=== PATIENT | female | born 1960 | race Two or more races ===

== ENCOUNTER 2025-02-20 12:12 | Emergency (ER) | payer MEDICAID, SELFPAY ==
--- NOTE | ~2025-02-20 | XR_ITS ---
EXAMINATION: XR KNEE, LEFT CLINICAL INFORMATION: heard knee pop on standing COMPARISON: None available. TECHNIQUE: Four views of the left knee. FINDINGS: No fracture, dislocation, or suspicious bone lesion. There is anatomical alignment. There is preservation of the joint spaces. There is patella baja. No significant joint effusion evident on the lateral projection. No soft tissue abnormalities. XR/XR knee LT 4V IMPRESSION: 1. No acute bony abnormalities. 2. Patella baja. Correlate for intact extensor mechanism. Electronically signed by: Corey Juarez MD 02/20/2025 01:14 PM EDT
[2025-02-20 12:31] VITALS: BP 148/88; PULSE 110; RESP 18; TEMP 36.2; O2SAT 98; BMI 24.7
--- NOTE | 2025-02-20 12:31 | ED_ITS ---
HPI - Extremity Injury (Lower) General Chief Complaint: Extremity Injury, Lower Stated Complaint: L Knee Dislocation Time Seen by Provider: 02/20/25 13:34 Source: patient Mode of arrival: ambulatory Limitations: no limitations History of Present Illness ED Provider: CORNELIO QUIROZ Narrative: 65 yo female with PMH of R ACL surgery - she notes she was kneeling today on both knees got up and it felt very painful and tight on the medial aspect of the L knee. She denies numbness or weakness. It hurts to fully extend and move the knee/walk on it. 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) Injury: Right: knee Type of Injury: blunt Place: home Severity: moderate Relieving factors: immobilization Exacerbating factors: weight bearing and movement Context: other Associated symptoms: other (pain on medial aspect of the knee) Other symptoms: none Treatments prior to arrival: bandage Related Data Allergies Allergy/AdvReac Type Severity Reaction Status Date / Time bacitracin Allergy Unknown WELTS Verified 02/20/25 12:33 [From NEOSPORIN ([id number])] neomycin Allergy Unknown WELTS Verified 02/20/25 12:33 [From NEOSPORIN ([id number])] polymyxin B Allergy Unknown WELTS Verified 02/20/25 12:33 [From NEOSPORIN ([id number])] Review of Systems Review of Systems: Constitutional : No Fever, No Chills ENT/Mouth : No Ear Pain, No Hoarseness, No sore throat Eyes: No Eye Pain, No Swelling, No Redness, No Foreign Body Cardiovascular : No Chest Pain, No SOB Respiratory : No Cough, No Dyspnea Gastrointestinal : No Nausea, No Vomiting, No Diarrhea, No abdominal Pain Genitourinary : No Dysuria, No Hematuria Musculoskeletal : positive joint pain, No Myalgias, No Joint Swelling Skin : No Skin lacerations, No rash Neuro : No Weakness, No Numbness, No Loss of Consciousness, No Dizziness, No Headache All other systems reviewed and are negative [facility] Past Medical History Attestation statement: The following information was validated with the patient. Source: old records reviewed Medical History (Updated 02/20/25 @ 14:06 by Crystal Grimes DO) ACL tear Social History Social History (Updated 02/20/25 @ 14:06 by Crystal Cornelio, DO) Patient Tobacco Use Status: Never used Tobacco Physical Exam Vital Signs: Vital Signs: Last Vital Signs Temp 97.1 F 02/20/25 12:31 Pulse 110 H 02/20/25 12:31 Resp 18 02/20/25 12:31 BP 148/88 H 02/20/25 12:31 Pulse Ox 98 02/20/25 12:31 O2 Del Method Room Air 02/20/25 12:31 BMI result Body Mass Index 24.7 Appearance: Alert. Oriented X3. No acute distress. Eyes: Pupils equal, round and reactive to light. ENT: Pharynx normal. Neck: Normal inspection. Neck supple. CVS: Normal heart rate and rhythm. Pulses normal. Respiratory: No respiratory distress. Breath sounds normal. Abdomen: Soft and nontender. Skin: Skin warm and dry. Normal skin color. Normal skin turgor. Extremities: No lower extremity edema. L knee distal NV intact, on testing able to raise the leg and no pain over quad tendon I do not feel a divot, she can plantar and dorsiflex the toes, no swelling other than mild medial joint line effusion + apley maneuver Neuro: Oriented X 3. No motor deficit. No sensory deficit. CN2-12 intact Course Course Course Narrative: 02/20/25 1231 APOLONIA Weaver This is a Rapid Medical Examination (RME) performed by Miladys Alvarez PA-C in triage. Full HPI, ROS, assessment and treatment plan per primary provider in the Main ED. Hx: 65 yo F here for eval of L knee pain since 1000 this morning. reports kneeling down and leaning forward to reach something in the attic, reports feeling like her knee popped out when she went to stand up. hx of similar a few months ago. reports concern she dislocated the knee. pain w/ bearing weight, better w/ rest. no numbness/tingling/weakness of the LLE. PE/vitals: wearing knee brace, unable to bear weight on LLE. strong dp pulse. Plan: xrs Medical Decision Making Medical Decision Making [facility] Narrative: 65 yo female with PMH of R ACL tear at this time the patient c/o L knee pain along medial proximal tib area she is NV intact, based off testing her quad and patella tendon appear intact at this time xray ordered, crutches. Told to get MRI with PCP Differential Diagnosis Differential Diagnoses: The differential diagnosis associated with the presentation includes strain, sprain, internal derangement injury Independent Interpretation I performed an independent interpretation of an: Plain X-Ray (no fracture) Radiology Impression Discussion of test interpretation with radiology: I have reviewed the radiologist's reading. External Record Review External record reviewed: Outpatient record Prescription Management I considered prescription management with: Pain Medication Discharge Plan Discharge Clinical Impression: Knee strain Patient Disposition: Home, Self-Care Instructions: Knee Sprain (ED), Crutch Instructions (ED) Additional Instructions: xray shows patella baja at this time no acute fracture or dislocation would follow up next week with your doctor return for any worsening symptoms or concerns you need MRI of your knee use crutches for 5 days, rest, ice and elevated high riding patella on exam Discharge Date/Time: 02/20/25 13:51 Print Language: Azeri
--- NOTE | 2025-02-20 13:51 | PC.NURSE ---
pt was seen and discharged by provider. she was fitted with axillary crutches and demonstrated proper use
== END 2025-02-20 13:51 | disposition home or self-care (01) ==
LOC: HO.ED 13:48
PROVIDERS: Emergency Provider Emergency Medicine
DX: S86.912A Strain of unspecified muscle(s) and tendon(s) at lower leg level, left leg, initial encounter (principal); M25.562 Pain in left knee; X58.XXXA Exposure to other specified factors, initial encounter; Y93.9 Activity, unspecified; Y92.9 Unspecified place or not applicable; Y99.8 Other external cause status
CPT/HCPCS: 73564; 99281; 99283

== ENCOUNTER → 2025-02-20 12:33 | Outpatient (BNV) | payer MEDICAID, SELFPAY | PROVIDERS: Emergency Provider Emergency Medicine; Visit Provider Radiology Diagnostic Radiology | DX: M22.3X2 Other derangements of patella, left knee (principal) | CPT/HCPCS: 73564 ==

== ENCOUNTER 2025-05-15 09:33 | Outpatient (REF) | payer MEDICAID, SELFPAY ==
--- NOTE | ~2025-05-15 | XR_ITS ---
EXAMINATION: XR KNEE, LEFT CLINICAL INFORMATION: M25.569 - Pain in unspecified knee COMPARISON: None available. TECHNIQUE: AP standing bilateral and sunrise views of the left knee. FINDINGS: There is moderate narrowing of the medial joint space and the lateral patellofemoral joint. Minute marginal osteophytes are present in the 3 joint compartments. There is lateral patellar tilt. XR/XR knee LT 2V IMPRESSION: Moderate osteoarthritis. Lateral patellar tilt is associated with patella femoral maltracking and/or excess lateral pressure syndrome. Electronically signed by: Dank Arboleda MD 05/15/2025 09:59 AM EDT
--- OUTSIDE RECORDS SUMMARY | 2025-05-19 10:38 | XMS_ITS | Clinical Summary ---
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 Role Phone Pcp, Unknown Primary Care [...] Description 04/01/2025 10:45 AM EDT Office Visit [facility] & [facility] Medicine [address] [place] [id number] Mere Mead MD Sprain of left knee, unspecified ligament, initial encounter (Primary Dx) 03/11/2025 Ancillary Orders [facility],Outside Imaging [address] [place] [address] Pedro, Pedro, 02/20/2025 - 02/20/2025 11:59 PM EDT Hospital Encounter [facility]Outside [facility] [address] [place] [address] Unknown, Unknown, Discharge Disposition: Home or Self [...] Description 08/27/2025 1:00 PM EST Office Visit [facility] [place] [facility] [address] [facility] [address] [place] [address] Leah Armijo MD [address] [facility] [address] [place] [address] [email or web address] Health Maintenance Due Date Last Done Comments [...] 3 Months Insurance [place] [id number] [facility] Care Teams Fish Farm Manager Relationship Specialty Start Date End Date Pcp, Unknown PCP - General 03/04/25 Additional Source Comments The information contained in this document represents components of the legal health record. It is not the complete legal health record.[facility]
== END 2025-05-15 09:34 | disposition home or self-care (01) ==
LOC: HO.HOSX 09:33
PROVIDERS: Visit Provider Physician Assistant
DX: M23.92 Unspecified internal derangement of left knee (principal); M25.569 Pain in unspecified knee
CPT/HCPCS: 73560; 99202

== ENCOUNTER 2025-05-15 09:47 | Outpatient (AMB) | payer MEDICAID, SELFPAY ==
--- NOTE | 2025-05-15 09:55 | A.OFFVIS_ITS ---
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 Patient states she was kneeling on both knees got up and felt a lot of pain. It also felt tight on the medial aspect of the knee. She was given crutches but is not using them at this time. Patient states she is able to walk but still feels discomfort and is preventing her from doing task as she would like. IMPRESSION: 1. No acute bony abnormalities. 2. Patella baja. Correlate for intact extensor mechanism. 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 Shanks is a 65-year-old female who presents to the office today for evaluation of left knee injury that she sustained on 02/20/2025. She states that she was kneeling on both knees in her attic and leaning over to grab something. She went to get up and felt a lot of pain. She was unable to fully weightbear. She was seen in the emergency department where x-rays were obtained and negative for any acute fracture or dislocations. She was discharged and instructed to follow up with orthopedics outpatient for further evaluation and treatment. 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 Additionally, she had a right knee ACL reconstruction many years ago. [facility] Medical History (Updated 05/15/25 @ 10:24 by Sherice Nicolas PA-C) ACL tear Social History (Updated 02/20/25 @ 14:06 by Crystal Grimes DO) Patient Tobacco Use Status: Never used Tobacco Review of Systems Const All systems reviewed & are unremarkable except as noted in HPI and below Physical Exam Const General: cooperative, healthy appearing and no acute distress Resp Effort & Inspection: normal respiratory effort and able to speak in complete sentences Extrem Other: Left knee: Normal to inspection. No ecchymosis, erythema, or joint effusion. Slight tenderness to palpation of the medial joint line. Full knee extension and flexion with slight crepitus. Negative Eva's. Negative anterior drawer. NVI. Psych Appearance: grossly normal Mental Status: mental status grossly normal Attitude: cooperative Assessment & Plan Assessment & Plan (1) Internal derangement of left knee: Code(s): M23.92 - Unspecified internal derangement of left knee Category: Medical Plan Ms. Shanks is a 65-year-old female who presents to the office today for evaluation of left knee injury that she sustained on 02/20/2025. She states that she was kneeling on both knees in her attic and leaning over to grab something. She went to get up and felt a lot of pain. She was unable to fully weightbear. She was seen in the emergency department where x-rays were obtained and negative for any acute fracture or dislocations. She was discharged and instructed to follow up with orthopedics outpatient for further evaluation and treatment. 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 Additionally, she had a right knee ACL reconstruction many years ago. Additionally, the patient reports episodes of locking in which she has to flex instruct her knee to end range to release and allow for motion. While the office today, I have placed an order for an MRI to further evaluate the integrity of the left knee and surrounding structures. Additionally, I placed an order for physical therapy to work on range of motion and strengthening of the left knee. She will follow up after the MRIs obtained, sooner if needed. X-rays of the left knee which were obtained while in the office today and were reviewed by me, Sherice Nicolas PA-C, revealed mild arthritic changes. Orders: Orders PT Evaluation and Treatment Today M23.92 - Unspecified internal derangement of left knee MR knee LT wo con Today M23.92 - Unspecified internal derangement of left knee XR knee LT 2V Today M25.569 - Pain in unspecified knee Coding Level of Care Code New Pt Level 3 (16601) Diagnoses Internal derangement of left knee M23.92
--- OUTSIDE RECORDS SUMMARY | 2025-05-15 10:34 | XMS_ITS | Clinical Summary ---
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 Name Role Phone Pcp, Unknown Primary Care Provider Unavailabl e Allergies Active Allergy Reactions Criticality Noted Date Comments Erythromycin Base 01/25/2010 Nausea ,upset stomach Neosporin (Neomycin-Polymyx) Dermatitis 993 Colloidal Oatmeal 06/12/2024 Medications Hospital, Clinic, or Other Facility Administered Medication Ordered Dose Route Frequency Start Date End Date Status lidocaine (XYLOCAINE) 1% injection 2 mL 2 mL See Adm Inst Once 04/01/2025 06/30/2025 Active BUPivacaine HCl (MARCAINE) 0.25% injection 2 mL 2 mL See Adm Inst Once 04/01/2025 06/30/2025 Active triamcinolone acetonide (KENALOG-40) 40 mg/mL injection 80 mg 80 mg See Adm Inst Once 04/01/2025 06/30/2025 Active Active Problems No known active problems Encounters Date Type Department Care Team Description 04/01/2025 10:45 AM EDT Office Visit [facility] [address] [place] [id number] Mere Mead MD Sprain of left knee, unspecified ligament, initial encounter (Primary Dx) 03/11/2025 Ancillary Orders [facility]Outside Imaging [address] [place] [address] Pedro, Pedro, 02/20/2025 - 02/20/2025 11:59 PM EDT Hospital Encounter [facility] [address] [place] [address] Unknown, Unknown, Discharge Disposition: Home or Self Care from Last 3 Months Immunizations Immunization Administration Dates Next Due Tdap 07/27/2024 Social History Tobacco Use Types Packs/Day Years Used Date Smoking Tobacco: Never Smokeless Tobacco: Never Alcohol Use Standard Drinks/Week Comments Not Currently 0 (1 standard drink = 0.6 oz pur e alcohol) Education Answer Date Recorded Are you interested in more education? Not on angelika e 05/03/2024 Are you concerned about learning? Not on file 05/03/2024 No 05/03/2024 No 05/03/2024 Digital Access Answer Date Recorded No 05/03/2024 No 05/03/2024 Reliable internet access at home? Not on file 05/03/2024 Device with a working camera? Not on file Intimate Partner Violence Answer Date R ecorded Are you denied basic needs s uch as food, clothing, or medical care? No 07/27/2024 In the past 12 months have y ou been in a relationship with a person who hurts, threatens, or tries to control you? No 07/27/2024 Are you denied basic needs s uch as food, clothing, or medical care? No 07/27/2024 In the past 12 months have y ou been in a relationship with a person who hurts, threatens, or tries to control you? No 07/27/2024 Comments Unknown Sex and Gender Information Value Date Recorded Sex Assigned at Female 07/27/2024 8:27 PM EST Legal Sex Female 7:48 PM EST Gender Identity Female 07/27/2024 8:27 PM EST Sexual Orientation Don't know 07/27/2024 9: 32 PM EST Last Filed Vital Signs Vital Sign Reading Time Taken Comments Blood Pressure 125/87 08/10/2024 11:28 AM EST Pulse 99 08/10/2024 11:28 AM EST Temperature 36.1 C (97 F) 08/10/2024 11:28 AM EST Respiratory Rate 20 08/10/2024 11:28 AM EST Oxygen Saturation 97% 08/10/2024 11:28 AM EST Inhaled Oxygen Concentration - - Weight 65.8 kg (145 lb) 08/10/2024 11:28 AM EST Height 167.6 cm (5' 6 ) 08/10/2024 11:28 AM EST Body Mass Index 23.4 08/10/2024 11:28 AM EST Plan of Treatment Upcoming Encounters Date Type Department Care Team (Late st Contact Info) Description 08/27/2025 1:00 PM EST Office Visit [facility] [address] [place] [address] Leah Armijo MD [address] [facility] [address] [place] [address] [email or web address] Health Maintenance Due Date Last Done Comments LIPID PANEL 1961 DEPRESSION SCREENING 1973 HEPATITIS C SCREENING 1979 HIV ONE-TIME SCREENING (18-65 YEARS) 1979 PAP SMEAR 1982 MAMMOGRAM 2001 COLOGUARD 2006 COLONOSCOPY 2006 COLORECTAL CANCER SCREENING 2006 FIT TEST 2006 FOBT 2006 SIGMOIDOSCOPY 2006 VIRTUAL COLONOSCOPY 2006 INFLUENZA VACCINE (#1) 2025 , 09/18/2022, 09/22/2021, Additional history exists Adult Td,Tdap Booster 07/27/2034 07/27/2024, 017 COVID-19 VACCINE Completed 09/03/2024, 10/2022, 01/02/2022, Additional history exists PNEUMOCOCCAL VACCINES (50+ years) Completed 12/18/2024 RSV VACCINE Completed 02/26/2025 ZOSTER VACCINES Completed 02/26/2025, 12/18/2024 SMOKING STATUS SCREENING (Once After 26 Yrs) Completed 04/01/2025 HEPATITIS A VACCINES Aged Out No long er eligible based on patient's age to complete this topic HIB VACCINES Aged Out No longer eligi ble based on patient's age to complete this topic MENINGOCOCCAL VACCINES (ACWY) Aged Out No longer eligible based on patient's age to complete this topic MENINGOCOCCAL VACCINES (B) Aged Out N o longer eligible based on patient's age to complete this topic Medical Devices Not on file Procedures Procedure Name Priority Date/Time Associated Diagnosis Comments XR LOWER EXTREMITY OUTSIDE (NO INTERPRETATION) Routine 02/20/2025 12:00 AM EDT from Last 3 Months Results * XR Lower Extremity Outside (No Interpretation) (02/20/2025 12:00 AM EDT) Narrative SYSTEMGENERATED, DOCUMENTATION - 03/11/2025 8:15 AM EDT This study is for PACS storage only and not for interpretation. us Unknown Unknown MD [facility] OUTSIDE IMAGING W/OUT INT ERPRETATION Final Result from Last 3 Months Insurance [place] [id number] [facility] Care Teams Electrical Prospecting Engineer Relationship Specialty Start Date End Date Pcp, Unknown PCP - General 03/04/25 Additional Source Comments The information contained in this document represents components of the legal health record. It is not the complete legal health record.[facility]
== END 2025-05-15 10:26 | disposition home or self-care (01) ==
LOC: HO.HOS 09:48
PROVIDERS: Visit Provider Physician Assistant
DX: M23.92 Unspecified internal derangement of left knee (principal)
CPT/HCPCS: 99203

== ENCOUNTER → 2025-05-15 09:48 | Outpatient (BNV) | payer MEDICAID, SELFPAY | PROVIDERS: Visit Provider Radiology Diagnostic Radiology | DX: M17.12 Unilateral primary osteoarthritis, left knee (principal) | CPT/HCPCS: 73560 ==

== ENCOUNTER 2025-07-24 10:59 | Outpatient (RCR) | payer MEDICAID, SELFPAY ==
--- NOTE | 2025-06-08 11:50 | MHC.PT.EP ---
[facility] Office [place] Office [place] Office [address] Magaly Greenberg [address] [phone] F: [phone] F: [phone] F: [phone] F: [phone] Physical Therapy Plan of Care Date of Evaluation: 06/08/25 Date of Surgery: NA Diagnosis: Internal derangement of L knee Assessment: Amanda is a 65 year old female who is referred to PT for internal derangement of L knee . She reports of having injured her L knee about 3 months back. Per pt her patella subluxated. She has had knee pain since then. On PT examination she presents with TTP over medial knee joint line, 2-6/10 pain in knee with standing and walking, L knee ROM WFL, decreased L LE strength and altered gait. She lives with her partner. She is independent with all ADLS but has pain with activities requiring her to stand. She is unemployed. She enjoys gardening. She would benefit from skilled PT to address the aforementioned impairments and improve tolerance to functional activities. Frequency and Duration: The patient will be seen 2/week for 5 weeks Short Term Goals: 1. Pt will have 50% decrease in pain which will enable her to sit without pain in 2 weeks 2. Pt will be able to move her knee through full range of motion without pain which will enable her to perform sit to stand without pain in 3 weeks Jail Goals: 1. Pt will demonstrate an increase in muscle strength by 1 grade which will enable her to stand and walk without pain in 5 weeks 2. Pt will be independent with all HEP for symptom management and maintenance following d/c in 5 weeks Treatment Plan: Modalities to reduce pain, spasms and effusion. Manual therapy to restore motion and function. Therapeutic exercise to improve strength and flexibility. Neuromuscular re-education for posture and balance. Therapeutic activities to return to functional activities of daily living. Electronically signed by: Minerva Thomas PT DPT Please sign and return to therapist. Thank you for your referral.
--- NOTE | 2025-08-18 11:30 | MHC.PT.DC ---
[facility] [place] Office [place] Office [place] Office [address] Magaly Greenberg [address] [phone] F: [phone] F: [phone] F: [phone] F: [phone] Physical Therapy Discharge Report Diagnosis: Internal derangement of L knee Date of Surgery: NA Date of Evaluation: 06/08/25 Date of Discharge: 08/18/25 Treatments to Date: 8 Cancellations to Date: 0 No Shows to Date: 1 Discharge Status: Achieved Goals Improved Function Independent with HEP Discharge Summary: Amanda completed 8 PT visits and has made significant improvements with PT. She has achieved all goals set for her and is independent with all HEPs. She has returned to PLOF. She is therefore being d/c from PT. Amanda was in agreement with the plan. Electronically signed by: Minerva Thomas PT DPT Please sign and return to therapist. Thank you for your referral.
== END 2025-08-18 11:31 | disposition home or self-care (01) ==
LOC: HO.PT 10:59
PROVIDERS: Visit Provider Physician Assistant
DX: M23.92 Unspecified internal derangement of left knee (principal)
CPT/HCPCS: 97110; 97161; 97530